=== PATIENT | female | born 1995 | race Hispanic/Latino ===

== ENCOUNTER 2021-03-01 09:30 | Emergency (ER) | payer SELFPAY ==
[2021-03-01] MEDS ORDERED: Lidocaine 1% PF 5 ML VIAL ONE (10:06)
[2021-03-01] MEDS ORDERED: cefTRIAXone\\ROCEPHIN 1 GM VIAL ONE (10:06)
[2021-03-01] MEDS ORDERED: Dexamethasone 10 MG/ML VIAL ONE (10:06)
[2021-03-01] MEDS ORDERED: Ketorolac Tromethamine 30 MG/ML VIAL ONE (10:06)
== END 2021-03-01 11:15 | disposition home or self-care (01) ==
LOC: BURERS 09:30
DX: J02.9 Acute pharyngitis, unspecified (principal); F17.210 Nicotine dependence, cigarettes, uncomplicated
CPT/HCPCS: 70360; 96372; J0696; J1100; J1885

== ENCOUNTER 2022-12-17 07:43 | Emergency (ER) | payer SELFPAY ==
[2022-12-17] MEDS ORDERED: Ketorolac Tromethamine 30 MG/ML VIAL ONE (08:03)
[2022-12-17] MEDS ORDERED: Dexamethasone 10 MG/ML VIAL ONE (08:03)
== END 2022-12-17 08:20 | disposition home or self-care (01) ==
LOC: BURERS 07:43
DX: J02.0 Streptococcal pharyngitis (principal); F17.210 Nicotine dependence, cigarettes, uncomplicated
CPT/HCPCS: 96372; 99282; J1100; J1885